=== PATIENT | female | born 1990 | race Caucasian/White ===

== ENCOUNTER 2021-06-27 14:10 | Inpatient (IN) | payer SELFPAY ==
[2021-06-27] MEDS ORDERED: Tranexamic Acid 1,000 MG in Sodium Chloride 0.9% 100 ML IV PRN (15:31)
[2021-06-27] MEDS ORDERED: Sodium Chloride 0.9% 2.5 ML Syringe FLUSH PRN (15:31)
[2021-06-27] MEDS ORDERED: Lidocaine 1% 50 ML MDV INJECT PRN (15:31)
[2021-06-27] MEDS ORDERED: Butorphanol 1 MG/ML SDV IVPUSH PRN (15:31)
[2021-06-27] MEDS ORDERED: Carboprost Tromethamine 250 MCG/1 ML Amp IM PRN (15:31)
[2021-06-27] MEDS ORDERED: Sodium Chloride 0.9% 20 ML SDV IV PRN (15:31)
[2021-06-27] MEDS ORDERED: Methylergonovine 0.2 MG/1 ML Amp IM PRN (15:31)
[2021-06-27] MEDS ORDERED: Misoprostol 200 MCG Tab PO PRN (15:31)
[2021-06-27] MEDS ORDERED: Sodium Chloride 0.9% 10 ML Syringe FLUSH PRN (15:31)
[2021-06-27] MEDS ORDERED: Water For Irrigation,Sterile 1,000 ML Container IRR PRN (15:31)
[2021-06-27] MEDS ORDERED: Misoprostol 25 MCG (1/4 of 100 MCG) Tab VAG PRN ×2 (15:36)
[2021-06-27] MEDS ORDERED: Terbutaline 1 MG/ML SDV SUBCUT PRN (15:36)
[2021-06-27] MEDS ORDERED: Oxytocin/0.9 % Sodium Chloride 30 UNIT/500 ML BAG IV SCH ×2 (15:45)
[2021-06-27 16:04] LABS: BLOOD UREA NITROGEN,BUN 8 mg/dL (7.0-18.0); CARBON DIOXIDE,CO2 19.7 mmol/L (21.0-32.0); CHLORIDE,CL 102 mmol/L (98-107); GLUCOSE RANDOM 80 mg/dL (74-106); POTASSIUM,K 3.9 mmol/L (3.5-5.1); SODIUM,NA 137 mmol/L (136-145)
[2021-06-27] MEDS ORDERED: ePHEDrine 50 MG/ML SDV IVPUSH PRN ×2 (19:19)
[2021-06-28] MEDS: Lactated Ringers 1,000 ML IV SCH ×3 (00:10→07:44)
[2021-06-28] MEDS ORDERED: Ropivacaine 100 ML ONE ×3 (04:17→16:18)
[2021-06-28] MEDS ORDERED: ePHEDrine 50 MG/ML SDV IVPUSH PRN (04:25)
[2021-06-28] MEDS ORDERED: Ibuprofen 400 MG Tab PO PRN (21:18)
[2021-06-28] MEDS ORDERED: Docusate Sodium 100 MG Cap PO PRN (21:18)
[2021-06-28] MEDS ORDERED: Bisacodyl 10 MG Supp RECTAL PRN (21:18)
[2021-06-28] MEDS ORDERED: Witch Hazel Medicated Pads 40/Jar TOP PRN (21:18)
[2021-06-28] MEDS ORDERED: Acetaminophen 500 MG Tab PO PRN ×2 (21:18)
[2021-06-28] MEDS ORDERED: Benzocaine/Menthol 20%-0.5% Spray 78 GM Cannister TOP PRN (21:18)
[2021-06-28] MEDS ORDERED: Lanolin 100% Cream 7 GM Tube TOP PRN (21:18)
[2021-06-28] MEDS ORDERED: oxyCODONE 5 MG Tab PO PRN (21:18)
[2021-06-29] MEDS: Ibuprofen 800 MG Tab PO PRN ×2 (00:26→16:10)
== END 2021-06-30 23:42 | disposition home or self-care (01) | DRG 807 ==
LOC: MW.OBCHECK 14:10 → MW.OB 14:13 → INTOOBSV 14:13 → MW.OB 20:27 → OBSVTOIN 06-28 20:27 → MW.OB 06-29 00:20
PROVIDERS: ADMIT Obstetrics & Gynecology; ATTEND Obstetrics & Gynecology
PROC: 10E0XZZ Delivery of Products of Conception, External Approach (ICD-10-PCS; principal; 2021-06-28)
PROC: 0KQM0ZZ Repair Perineum Muscle, Open Approach (ICD-10-PCS; 2021-06-28)
PROC: 10907ZC Drainage of Amniotic Fluid, Therapeutic from Products of Conception, Via Natural or Artificial Opening (ICD-10-PCS; 2021-06-28)
PROC: 3E0P7VZ Introduction of Hormone into Female Reproductive, Via Natural or Artificial Opening (ICD-10-PCS; 2021-06-28)
PROC: 3E033VJ Introduction of Other Hormone into Peripheral Vein, Percutaneous Approach (ICD-10-PCS; 2021-06-28)
PROC: 3E0R3BZ Introduction of Anesthetic Agent into Spinal Canal, Percutaneous Approach (ICD-10-PCS; 2021-06-28)
PROC: 00HU33Z Insertion of Infusion Device into Spinal Canal, Percutaneous Approach (ICD-10-PCS; 2021-06-28)
DX: O48.0 Post-term pregnancy (principal); Z37.0 Single live birth; O13.4 Gestational [pregnancy-induced] hypertension without significant proteinuria, complicating childbirth; Z3A.41 41 weeks gestation of pregnancy; O70.1 Second degree perineal laceration during delivery; Z20.822 Contact with and (suspected) exposure to COVID-19
CPT/HCPCS: 01967; 36415; 51701; 59025; 59409; 59414; 80053; 82803; 84550; 85014; 85018; 85027; 86592; 86850; 86900; 86901; A9270-GY; J2001; J2210; J2590; J2795; J7120; U0002

== ENCOUNTER 2022-11-12 07:31 | Inpatient (IN) | payer SELFPAY ==
[2022-11-12] MEDS ORDERED: Butorphanol 1 MG/ML SDV IVPUSH PRN (07:51)
[2022-11-12] MEDS ORDERED: Misoprostol 200 MCG Tab PO PRN (07:51)
[2022-11-12] MEDS ORDERED: Ondansetron 4 MG/2 ML SDV IVPUSH PRN (07:51)
[2022-11-12] MEDS ORDERED: Water For Irrigation,Sterile 1,000 ML Container IRR PRN (07:51)
[2022-11-12] MEDS ORDERED: Methylergonovine 0.2 MG/1 ML Amp IM PRN (07:51)
[2022-11-12] MEDS ORDERED: Lidocaine 1% 50 ML MDV INJECT PRN (07:51)
[2022-11-12] MEDS ORDERED: Sodium Chloride 0.9% 20 ML SDV IV PRN (07:51)
[2022-11-12] MEDS ORDERED: Sodium Chloride 0.9% 10 ML Syringe FLUSH PRN (07:51)
[2022-11-12] MEDS ORDERED: Carboprost Tromethamine 250 MCG/1 mL Vial IM PRN (07:51)
[2022-11-12] MEDS ORDERED: Tranexamic Acid IN NACL,ISO-OS 1,000 MG in Premix Bag 1 BAG IV PRN ×2 (07:51)
[2022-11-12] MEDS ORDERED: Sodium Chloride 0.9% 2.5 ML Syringe FLUSH PRN (07:51)
[2022-11-12] MEDS ORDERED: Lactated Ringers 1,000 ML IV SCH (08:00)
[2022-11-12] MEDS ORDERED: Oxytocin/0.9 % Sodium Chloride 30 UNIT/500 ML BAG IV SCH (08:00)
[2022-11-12] MEDS ORDERED: ePHEDrine 50 MG/ML SDV IVPUSH PRN ×2 (08:03)
[2022-11-12] MEDS ORDERED: Phenylephrine HCl 0.5 MG/5 ML AMP IVPUSH PRN (08:03)
[2022-11-12] MEDS ORDERED: Ropivacaine HCl/PF 400 MG in Premix Bag 1 BAG EPIDUR SCH (08:15)
[2022-11-12] MEDS ORDERED: Ropivacaine/PF 400 MG/200 ML PCA ONE (08:54)
[2022-11-12 09:01] LABS: HEMATOCRIT 35.4 % (36.0-46.0); HEMOGLOBIN 11.5 g/dL (12.0-16.0); MEAN CORPUSCULAR HEMOGLOBIN 25.5 pg (27.0-32.0); MEAN CORPUSCULAR HGB CONC 32.5 g/dL (31.0-37.0); MEAN CORPUSCULAR VOLUME 78.5 fL (80.0-98.0); MEAN PLATELET VOLUME 12.1 fL (7.40-12.00); RED BLOOD CELL COUNT 4.51 M/uL (4.30-5.90); WHITE BLOOD CELL COUNT,WBC 10.87 K/uL (4.0-11.0)
[2022-11-12] MEDS ORDERED: Acetaminophen 500 MG Tab PO ONE (14:05)
[2022-11-12] MEDS ORDERED: Bisacodyl 10 MG Supp RECTAL PRN (19:03)
[2022-11-12] MEDS ORDERED: Witch Hazel Medicated Pads 40/Jar TOP PRN (19:03)
[2022-11-12] MEDS ORDERED: Ibuprofen 800 MG Tab PO PRN (19:03)
[2022-11-12] MEDS ORDERED: Ibuprofen 400 MG Tab PO PRN (19:03)
[2022-11-12] MEDS ORDERED: oxyCODONE 5 MG Tab PO PRN (19:03)
[2022-11-12] MEDS ORDERED: Acetaminophen 500 MG Tab PO PRN ×2 (19:03)
[2022-11-12] MEDS ORDERED: Docusate Sodium 100 MG Cap PO PRN (19:03)
[2022-11-12] MEDS ORDERED: Hydrocortisone 2.5% Crm 30 GM Tube TOP PRN (19:03)
[2022-11-12] MEDS ORDERED: Benzocaine/Menthol 20%-0.5% Spray 78 GM Cannister TOP PRN (19:03)
[2022-11-12] MEDS ORDERED: Lanolin 100% Cream 7 GM Tube TOP PRN (19:03)
[2022-11-12 19:36] LABS: PH,UMBILICAL VENOUS 7.31 (7.25-7.45)
[2022-11-13 06:43] LABS: HEMOGLOBIN 10.2 g/dL (12.0-16.0)
== END 2022-11-13 14:11 | disposition home or self-care (01) | DRG 807 ==
LOC: MW.OBCHECK 07:31 → MW.OB 07:42 → MW.OBCHECK 18:00 → OBSVTOIN 18:36 → MW.OB 23:41
PROVIDERS: ADMIT Obstetrics & Gynecology; ATTEND Obstetrics & Gynecology
PROC: 10E0XZZ Delivery of Products of Conception, External Approach (ICD-10-PCS; principal; 2022-11-12)
PROC: 0HQ9XZZ Repair Perineum Skin, External Approach (ICD-10-PCS; 2022-11-12)
PROC: 3E0R3BZ Introduction of Anesthetic Agent into Spinal Canal, Percutaneous Approach (ICD-10-PCS; 2022-11-12)
PROC: 00HU33Z Insertion of Infusion Device into Spinal Canal, Percutaneous Approach (ICD-10-PCS; 2022-11-12)
PROC: 3E033VJ Introduction of Other Hormone into Peripheral Vein, Percutaneous Approach (ICD-10-PCS; 2022-11-12)
DX: O36.63X0 Maternal care for excessive fetal growth, third trimester, not applicable or unspecified (principal); Z37.0 Single live birth; O70.0 First degree perineal laceration during delivery; O99.824 Streptococcus B carrier state complicating childbirth; Z3A.39 39 weeks gestation of pregnancy
CPT/HCPCS: 36415; 51702; 59025; 59409; 82803; 85014; 85018; 85027; 86592; 86850; 86900; 86901; A9270-GY; J2370; J2795; J7120

== ENCOUNTER 2024-08-21 12:55 | Emergency (ER) | payer OTHER ==
[2024-08-21 13:27] LABS: BASOPHILS ABSOLUTE AUTO 0.01 K/uL (0.00-0.20); BASOPHILS PERCENT AUTO 0.2 % (0.0-1.0); EOSINOPHILS PERCENT AUTO 3.8 % (0.0-6.0); HEMATOCRIT 37.5 % (37.0-47.0); HEMOGLOBIN 12.5 g/dL (12.0-16.0); IMMATURE GRAN ABSOLUTE AUTO 0.01 K/uL (0.00-0.05); IMMATURE GRAN PERCENT AUTO 0.2 % (0.0-0.4); LYMPHOCYTES PERCENT AUTO 43.8 % (24.0-44.0); MEAN CORPUSCULAR HEMOGLOBIN 27.4 pg (28.0-32.0); MEAN CORPUSCULAR HGB CONC 33.3 g/dL (32.0-36.0); MEAN CORPUSCULAR VOLUME 82.2 fL (83.0-99.0); MEAN PLATELET VOLUME 10.9 fL (9.4-12.3); MONOCYTES ABSOLUTE AUTO 0.44 K/uL (0.00-0.80); MONOCYTES PERCENT AUTO 8.4 % (0.0-8.0); NEUTROPHILS ABSOLUTE AUTO 2.29 K/uL (1.80-7.70); NEUTROPHILS PERCENT AUTO 43.6 % (41.0-71.0); PLATELET COUNT,PLT 211 K/uL (150-400); RED BLOOD CELL COUNT 4.56 M/uL (4.10-5.30); WHITE BLOOD CELL COUNT,WBC 5.25 K/uL (3.9-11.3)
[2024-08-21] MEDS: Sodium Chloride 0.9% 1,000 ML IV ONE (13:41)
[2024-08-21 13:56] LABS: A/G RATIO 0.8 (0.9-1.6); ALBUMIN 3.3 g/dL (3.4-5.0); BILIRUBIN TOTAL 0.2 mg/dL (0.2-1.0); CALCIUM 8.9 mg/dL (8.5-10.1); CARBON DIOXIDE,CO2 26.6 mmol/L (21.0-32.0); CREATININE 0.6 mg/dL (0.6-1.0); EST CRCL DRUG DOSING (CG) 129.69 mL/min; POTASSIUM,K 3.3 mmol/L (3.5-5.1); PROTEIN TOTAL,TP 7.4 g/dL (6.4-8.2)
[2024-08-21 14:11] LABS: APPEARANCE,URINE SLT CLOUDY; BILIRUBIN,URINE NEGATIVE (NEGATIVE); COLOR,URINE YELLOW; GLUCOSE,URINE NEGATIVE (NEGATIVE); KETONES,URINE NEGATIVE (NEGATIVE); LEUKOCYTE ESTERASE,URINE NEGATIVE (NEGATIVE); NITRITE,URINE NEGATIVE (NEGATIVE); OCCULT BLOOD,URINE LARGE (NEGATIVE); PROTEIN,URINE TRACE mg/dL (NEGATIVE); UROBILINOGEN,URINE 0.2 EU/dL (<2.0)
[2024-08-21 14:21] LABS: BACTERIA,URINE FEW (NEGATIVE); EPITHELIAL CELLS,URINE OCCASIONAL (NONE-FEW); RBC,URINE 30-40 (0-2/HPF); WBC,URINE 0-4 (0-5/HPF)
== END 2024-08-21 15:14 | disposition home or self-care (01) ==
LOC: MW.ED 12:55
DX: O20.0 Threatened abortion (principal); Z3A.12 12 weeks gestation of pregnancy; Z75.3 Unavailability and inaccessibility of health-care facilities
CPT/HCPCS: 36415; 76815; 80053; 81001; 84702; 85025; 86900; 86901; 96360; 99284; J7030; 99283

== ENCOUNTER 2025-02-16 23:41 | Inpatient (IN) | payer OTHER ==
[2025-02-17] MEDS ORDERED: Ondansetron 4 MG/2 ML SDV IVPUSH PRN ×3 (00:04→01:51)
[2025-02-17] MEDS ORDERED: Sodium Chloride 0.9% 10 ML Syringe FLUSH PRN ×2 (00:04→01:51)
[2025-02-17] MEDS ORDERED: Carboprost Tromethamine 250 MCG/1 mL Vial IM PRN ×2 (00:04→01:51)
[2025-02-17] MEDS ORDERED: Sodium Chloride 0.9% 2.5 ML Syringe FLUSH PRN ×2 (00:04→01:51)
[2025-02-17] MEDS ORDERED: Water For Irrigation,Sterile 1,000 ML Container IRR PRN (00:04)
[2025-02-17] MEDS ORDERED: Butorphanol 1 MG/ML SDV IVPUSH PRN (00:04)
[2025-02-17] MEDS ORDERED: Dexamethasone Sod Phos Preservative Free 10 MG/ML Vial ONE (00:14)
[2025-02-17] MEDS ORDERED: fentaNYL 100 MCG/2 ML SDV ONE ×3 (00:14→00:16)
[2025-02-17] MEDS ORDERED: Ketorolac 30 MG/ML SDV ONE (00:14)
[2025-02-17] MEDS ORDERED: Oxytocin 10 Units/1 ML SDV ONE (00:14)
[2025-02-17] MEDS ORDERED: Ropivacaine 0.5% 5 MG/ML 30 ML SDV ONE (00:14)
[2025-02-17] MEDS ORDERED: Ondansetron 4 MG/2 ML SDV ONE (00:14)
[2025-02-17] MEDS ORDERED: Morphine PF 10 MG/10 ML SDV ONE (00:15)
[2025-02-17] MEDS ORDERED: Propofol 200 MG/20 ML SDV ONE (00:15)
[2025-02-17] MEDS ORDERED: Oxytocin/0.9 % Sodium Chloride 30 UNIT/500 ML BAG IV SCH ×2 (00:15→02:00)
[2025-02-17 00:58] LABS: MEAN PLATELET VOLUME 13.5 fL (9.4-12.3); NRBC ABSOLUTE 0.00 K/uL (0.00-0.02); NRBC PERCENT 0.0 /100WBC (0.0-0.2); RED BLOOD CELL COUNT 4.70 M/uL (4.10-5.30); WHITE BLOOD CELL COUNT,WBC 11.90 K/uL (3.9-11.3)
[2025-02-17 01:12] LABS: PLATELET COUNT,PLT 162 K/uL (150-400)
[2025-02-17] MEDS ORDERED: fentaNYL 50 MCG/ML SDV IVPUSH PRN (01:40)
[2025-02-17] MEDS ORDERED: Albuterol 0.083% 2.5 MG/3 ML Neb Soln NEB PRN (01:40)
[2025-02-17] MEDS ORDERED: Naloxone 0.4 MG/ML SDV IVPUSH PRN (01:40)
[2025-02-17 01:47] LABS: PH,UMBILICAL ARTERIAL 7.178 (7.18-7.38); PH,UMBILICAL VENOUS 7.244 (7.25-7.45)
[2025-02-17] MEDS ORDERED: Lanolin 100% Cream 7 GM Tube TOP PRN (01:51)
[2025-02-17] MEDS ORDERED: Ketorolac 30 MG/ML SDV IVPUSH SCH (02:00)
[2025-02-17 02:12] LABS: ALANINE AMINOTRANSFERASE,ALT 18 IU/L (14-63); ASPARTATE AMNIOTRANSFERASE,AST 18 IU/L (15-37); CARBON DIOXIDE,CO2 24.2 mmol/L (21.0-32.0); CHLORIDE,CL 102 mmol/L (98-107); POTASSIUM,K 3.6 mmol/L (3.5-5.1); SODIUM,NA 137 mmol/L (136-145)
[2025-02-17 02:28] LABS: A/G RATIO 0.6 (0.9-1.6); BILIRUBIN TOTAL 0.3 mg/dL (0.2-1.0); BLOOD UREA NITROGEN,BUN 10 mg/dL (7.0-18.0); CREATININE 0.6 mg/dL (0.6-1.0); GLUCOSE RANDOM 163 mg/dL (74-106); PROTEIN TOTAL,TP 6.9 g/dL (6.4-8.2)
[2025-02-17 02:29] LABS: ESTIMATED GFR 121 mL/min (>60)
[2025-02-17] MEDS: Terbutaline 1 MG/ML SDV ONE (04:47)
[2025-02-17] MEDS: Lactated Ringers 1,000 ML IV SCH (04:48)
[2025-02-17 06:39] LABS: BASOPHILS ABSOLUTE AUTO 0.03 K/uL (0.00-0.20); BASOPHILS PERCENT AUTO 0.2 % (0.0-1.0); EOSINOPHILS ABSOLUTE AUTO 0.01 K/uL (0.00-0.45); EOSINOPHILS PERCENT AUTO 0.1 % (0.0-6.0); IMMATURE GRAN ABSOLUTE AUTO 0.09 K/uL (0.00-0.05); IMMATURE GRAN PERCENT AUTO 0.5 % (0.0-0.4); LYMPHOCYTES ABSOLUTE AUTO 1.59 K/uL (1.00-4.80); LYMPHOCYTES PERCENT AUTO 8.3 % (24.0-44.0); MEAN PLATELET VOLUME 11.5 fL (9.4-12.3); MONOCYTES ABSOLUTE AUTO 0.67 K/uL (0.00-0.80); MONOCYTES PERCENT AUTO 3.5 % (0.0-8.0); NEUTROPHILS ABSOLUTE AUTO 16.71 K/uL (1.80-7.70); NEUTROPHILS PERCENT AUTO 87.4 % (41.0-71.0); NRBC ABSOLUTE 0.00 K/uL (0.00-0.02); NRBC PERCENT 0.0 /100WBC (0.0-0.2); PLATELET COUNT,PLT 220 K/uL (150-400); RED BLOOD CELL COUNT 4.18 M/uL (4.10-5.30); WHITE BLOOD CELL COUNT,WBC 19.10 K/uL (3.9-11.3)
[2025-02-17] MEDS: Ketorolac 30 MG/ML SDV IVPUSH SCH (08:03)
[2025-02-17] MEDS: Measles, Mumps & Rubella Vaccine 0.5 ML SDV SUBCUT ONE (11:05)
== END 2025-02-18 12:40 | disposition home or self-care (01) | DRG 788 ==
LOC: MW.OBCHECK 23:41 → MW.OB 23:41 → MW.OBCHECK 02-17 00:04 → MW.OB 02-17 00:04 → OBSVTOIN 02-17 00:27 → MW.OB 02-17 04:42
PROVIDERS: ADMIT Obstetrics & Gynecology; ATTEND Obstetrics & Gynecology
PROC: 10D00Z1 Extraction of Products of Conception, Low, Open Approach (ICD-10-PCS; principal; 2025-02-17 00:22)
DX: O99.214 Obesity complicating childbirth (principal); Z3A.38 38 weeks gestation of pregnancy; Z37.0 Single live birth; O35.10X0 Maternal care for (suspected) chromosomal abnormality in fetus, unspecified, not applicable or unspecified; O99.824 Streptococcus B carrier state complicating childbirth; O69.0XX0 Labor and delivery complicated by prolapse of cord, not applicable or unspecified; O32.8XX0 Maternal care for other malpresentation of fetus, not applicable or unspecified
CPT/HCPCS: 01961; 36415; 51702; 59025; 59514; 64488; 74018; 74018-26; 80053; 82803; 85025; 85027; 86592; 86850; 86900; 86901; 90471; A9270-GY; J0166; J0456; J0665; J0690; J1100; J1885; J2274; J2405; J2590; J2704; J2795; J3010; J3105; J3490; J7120